=== PATIENT | female | born 1945 | race Caucasian/White ===

== ENCOUNTER 2019-07-25 18:28 | Inpatient (IN) | payer MEDICARE, OTHER ==
[~2019-07-25] VITALS: Ht 165.1 cm; Wt 93.5 kg
[2019-07-25 19:22] LABS: HEMATOCRIT 41.5 % (37.0-47.0); HEMOGLOBIN 14.1 g/dl (12.5-16.0); MEAN CELL VOLUME 93 fl (80.0-100.0); MEAN CORPUSCULAR HEMOGLOBIN 32 pg (27.0-31.0); MEAN CORPUSCULAR HGB CONC 34 g/dl (33.0-37.0); MEAN PLATELET VOLUME 9.8 fl (7.4-10.4); PLATELET COUNT 107 K/mm3 (130-400); RED BLOOD COUNT 4.48 M/mm3 (4.10-5.30); REDCELL DISTRIBUTION WIDTH-CV 13.4 % (11.5-14.5)
[2019-07-25 19:29] LABS: INR 1.1 (0.8-3.0); PROTHROMBIN TIME 12.8 SECONDS (9.7-12.8)
[2019-07-25 19:48] LABS: ALBUMIN 3.4 gm/dL (3.5-5.0); BILIRUBIN,TOTAL 0.9 mg/dL (0.0-1.0); C-REACTIVE PROTEIN 5.2 mg/dL (0.0-0.9); CALCIUM 8.7 mg/dL (8.4-10.2); CREATININE, serum 0.76 (0.52-1.25); POTASSIUM 3.6 mmol/L (3.4-5.0); TOTAL PROTEIN 6.2 gm/dL (6.4-8.2)
[2019-07-25 19:57] LABS: TROPONIN-I 0.021 ng/mL (0.000-0.035)
[2019-07-25 20:13] LABS: BAND 2 % (0-10); LYMPHOCYTE 4 % (20.0-51.0); MYELOCYTE 4 % (0-0); NEUTROPHILS 73 % (42.0-75.2)
[2019-07-25 20:14] LABS: PLATELET ESTIMATE DECREASED (NORMAL)
[2019-07-25] MEDS ORDERED: PROAIR RES117 MCG/Ac IH (22:10)
[2019-07-25] MEDS ORDERED: ALBUTEROL0.83 MG/ML IH (22:10)
[2019-07-25] MEDS ORDERED: RT SPIRIVA18 MCG IH (22:11)
[2019-07-25] MEDS ORDERED: 00186-0370-20 IH (22:12)
[2019-07-25 22:14] VITALS: BP 126/62; PULSE 70; TEMP 97.8
[2019-07-25] MEDS ORDERED: NASACORT OTC NS (22:14)
[2019-07-25] MEDS ORDERED: CRESTOR 10MG10 MG PO (22:15)
--- NOTE | 2019-07-25 22:15 | NUR ---
Admitted to medical floor from ER- DX COPD exacerbation, lung sounds decreased, wheezy, coarse- o2 at 3L/nc with sats 92-93%- tele on,- Yasmine SHARMA here to see patient and write orders-
[2019-07-25] MEDS ORDERED: K-DUR 10 MEQ T10 MEQ PO (22:16)
[2019-07-25] MEDS ORDERED: LOPRESSOR 225 MG/TAB PO (22:17)
[2019-07-25] MEDS ORDERED: NORCO 325 MG-101 TAB PO (22:18)
[2019-07-25] MEDS ORDERED: LASIX 20MG TABL20 MG PO (22:19)
[2019-07-25] MEDS ORDERED: NEXIUM 40MG40 MG PO (22:20)
[2019-07-25] MEDS ORDERED: ASPIRIN E.C. 8181 MG PO (22:21)
[2019-07-25] MEDS ORDERED: SYNTHROID0.075 MG/T PO (22:22)
--- NOTE | 2019-07-25 23:14 | NUR ---
called ANU Benjamin about pt HR in 140's.
[2019-07-25 23:51] VITALS: BP 116/57; PULSE 70; TEMP 97.7
[2019-07-26 04:10] VITALS: BP 115/57; TEMP 97.4
--- NOTE | 2019-07-26 05:47 | NUR ---
Quiet night-- VSS, o2 sats 94-95% on 3L/nc--states overall feeling a little better -
[2019-07-26 06:46] LABS: HEMATOCRIT 39.9 % (37.0-47.0); HEMOGLOBIN 13.6 g/dl (12.5-16.0); MEAN CELL VOLUME 93 fl (80.0-100.0); MEAN CORPUSCULAR HEMOGLOBIN 32 pg (27.0-31.0); MEAN CORPUSCULAR HGB CONC 34 g/dl (33.0-37.0); MEAN PLATELET VOLUME 10.2 fl (7.4-10.4); PLATELET COUNT 100 K/mm3 (130-400); REDCELL DISTRIBUTION WIDTH-CV 13.5 % (11.5-14.5)
[2019-07-26 07:08] LABS: CALCIUM 8.6 mg/dL (8.4-10.2); CREATININE, serum 0.67 (0.52-1.25); POTASSIUM 4.3 mmol/L (3.4-5.0)
[2019-07-26 07:25] VITALS: BP 135/69; PULSE 70; TEMP 97.6
--- NOTE | 2019-07-26 08:45 | NUR ---
Pt assessment completed and charted. Morning medications administered per OCT. Pt A&O, sitting in bed. VSS. Pt denies chest pain, dizziness, n/v/d. Pt states she has some SOB, currently on 3L NC, satting well. Lung sounds wheezing throughout insp/exp. Heart RRR, pulses strong bilaterally. RWR INT IV flushes w/o complications. Pt on tele. Currently receving breathing tx. No other concerns expressed at this time.
--- NOTE | 2019-07-26 10:23 | NUR ---
Patient [place] near [place], [place] and recently relocated to the [place] area from in April 2019. Patient's son Eric Camejo can be contacted at [phone] and her son Noel Camejo can be contacted at [phone]. Patient has anticipated usage of durable medical equipment and has no primary care physician at this time. Patient uses [facility] in [place], and does not have advance directives completed or on file at this time. No further needs and social work administrator will follow as needed.
[2019-07-26 11:14] LABS: BAND 4 % (0-10); LYMPHOCYTE 10 % (20.0-51.0); NEUTROPHILS 86 % (42.0-75.2); PLATELET ESTIMATE DECREASED (NORMAL)
[2019-07-26 11:41] VITALS: BP 119/53; PULSE 70; TEMP 97.9
[2019-07-26 16:11] VITALS: BP 145/58; PULSE 70; TEMP 97.6
[2019-07-26 19:52] VITALS: BP 140/73; PULSE 70; TEMP 97.5
[2019-07-27] VITALS (7 sets, daily range): BP systolic 122–149; BP diastolic 51–76; PULSE 7–70; TEMP 97.6–98.5
--- NOTE | 2019-07-27 01:48 | NUR ---
Report rcvd from ANU Celeste. Pt is sitting up in bed, no c/o pain or discomfort at this time. Assessment completed. Pt voiced no need for anything at this time. Call light and personal belongings within reach. No further concerns at this time.
--- NOTE | 2019-07-27 04:45 | NUR ---
Antionette from Telemetry called to inform of an 8 beat run of Ventricular tachycardia. RT called and an EKG was completed. No change from previous EKG.
--- NOTE | 2019-07-27 05:24 | NUR ---
Pt has had a rough night. Lung sounds have increased from Expiratory Wheezes to inspiratory and expiratory wheezing. Pt has had breathing treatments as well as an EKG. Pt did not however, have a difficult time sleeping.
[2019-07-27 06:44] LABS: HEMATOCRIT 40.5 % (37.0-47.0); MEAN CELL VOLUME 93 fl (80.0-100.0); MEAN CORPUSCULAR HEMOGLOBIN 32 pg (27.0-31.0); MEAN CORPUSCULAR HGB CONC 35 g/dl (33.0-37.0); PLATELET COUNT 113 K/mm3 (130-400); RED BLOOD COUNT 4.38 M/mm3 (4.10-5.30); REDCELL DISTRIBUTION WIDTH-CV 13.3 % (11.5-14.5)
[2019-07-27 06:56] LABS: CALCIUM 9.2 mg/dL (8.4-10.2); CREATININE, serum 0.74 (0.52-1.25); POTASSIUM 4.2 mmol/L (3.4-5.0)
--- NOTE | 2019-07-27 07:28 | NUR ---
Report given to ANU Neri. Pt lung sounds worsening throughout the night. Ins/Exp wheezes and increased SOB. Pt has had breathing treatments and solumedrol. No other concerns at this time.
[2019-07-27 08:26] LABS: BAND 3 % (0-10); LYMPHOCYTE 4 % (20.0-51.0); NEUTROPHILS 88 % (42.0-75.2)
[2019-07-27 08:28] LABS: PLATELET ESTIMATE NORMAL (NORMAL)
--- NOTE | 2019-07-27 10:02 | NUR ---
Pt awake and alert thios morning, sitting up in the recliner upon entry, talkative, shift assessments complete, left Pt call light in reach.
--- NOTE | 2019-07-27 18:29 | NUR ---
Pt rested during the day, she spent some time up in the recliner earlier today, no C/O pain throughout the day, Pt has audible wheezing at times, VS have remained stable.
--- NOTE | 2019-07-27 19:06 | NUR ---
Report received from ANU Neri
--- NOTE | 2019-07-27 19:37 | NUR ---
Resting in bed. Assessment complete. Lungs wheezing throughout. Labored breathing with ambulation and coughing. Currently on 2 liters of oxygen via nasal cannula. Heart sounds normal. Bowels active x4. Pulses strong throughout. Bilateral lower leg edema +1. INT right forearm without complications. Denies pain. Denies other needs at this time. Call light in reach.
--- NOTE | 2019-07-28 02:45 | NUR ---
Resting in bed. Call light in reach.
--- NOTE | 2019-07-28 03:53 | NUR ---
Resting in bed. Call light in reach.
[2019-07-28 04:21] VITALS: BP 141/81; PULSE 70; TEMP 98.2
--- NOTE | 2019-07-28 06:19 | NUR ---
Patient had uneventful night. Resting in bed this AM. Denied needs. Call light in reach.
--- NOTE | 2019-07-28 07:14 | NUR ---
Report given to ANU Roth
[2019-07-28 07:30] LABS: CALCIUM 9.4 mg/dL (8.4-10.2); CREATININE, serum 0.76 (0.52-1.25); POTASSIUM 3.9 mmol/L (3.4-5.0)
[2019-07-28 07:48] LABS: HEMATOCRIT 41.9 % (37.0-47.0); MEAN CELL VOLUME 94 fl (80.0-100.0); MEAN CORPUSCULAR HEMOGLOBIN 31 pg (27.0-31.0); MEAN CORPUSCULAR HGB CONC 33 g/dl (33.0-37.0); MEAN PLATELET VOLUME 10.2 fl (7.4-10.4); PLATELET COUNT 136 K/mm3 (130-400); RED BLOOD COUNT 4.46 M/mm3 (4.10-5.30); REDCELL DISTRIBUTION WIDTH-CV 13.7 % (11.5-14.5)
--- NOTE | 2019-07-28 08:30 | NUR ---
Patient is sitting up in recliner doing a word search puzzle. She expresses that she wishes to go home today. Denies pain but knows that she has been wheezing. She does have insp and expriatroy wheezes. She is alert and oriented, independent in room. Denies pain. Call light and personal items are within reach.
[2019-07-28 08:56] LABS: BAND 11 % (0-10); LYMPHOCYTE 3 % (20.0-51.0); NEUTROPHILS 83 % (42.0-75.2); PLATELET ESTIMATE NORMAL (NORMAL)
[2019-07-28 09:00] VITALS: BP 126/62; PULSE 70; TEMP 97.1
--- NOTE | 2019-07-28 10:09 | NUR ---
patient needs 2lpm while ambulating for Spo2 >88. 2 LPM GIVES PATIENT 90%.
[2019-07-28] MEDS ORDERED: PREDNISONE20 MG PO (11:58)
[2019-07-28 12:11] VITALS: BP 110/40; PULSE 76; TEMP 97.9
--- NOTE | 2019-07-28 13:49 | NUR ---
The patient is to discharge back home with her son today, 07/28. MARCELINO met with the patient to review discharge plan. The patient reports that she already has continuous home oxygen set up through [facility] and has a portable tank here to go home on. The patient was secured an appointment on 08/[address] Merlyn White at the [facility] for primary care. The patient had no other questions or concerns for SW. MARCELINO presented and explained the IM form to the patient. The patient verbalized understanding, signed, and she was provided a copy. No additional needs at this time.
--- NOTE | 2019-07-28 14:10 | NUR ---
Pt alert and oriented. Pt given discharge orders and education on discharge medications and follow up appts. Pt IV discontinued in RW. No infiltration or redness noted. Pt will lemon picker meds at [facility]. Pt assisted with belongings and is getting dressed now. Pt's spouse will be here soon to pick her up. Pt to use call light when ride is here.
--- NOTE | 2019-07-28 18:01 | NUR ---
Patient discharged at 1445, was escorted to private vehicle via wheelchair. Personal belongings taken with patient.
== END 2019-07-28 14:45 | disposition home or self-care (01) | DRG 192 ==
LOC: COL.ER 18:28 → MEDICAL 20:21
PROVIDERS: Emergency Medicine; Nurse Practitioner Family; Physician Assistant; ADMIT Internal Medicine
DX: J44.1 Chronic obstructive pulmonary disease with (acute) exacerbation (principal); E03.9 Hypothyroidism, unspecified; E78.5 Hyperlipidemia, unspecified; I11.0 Hypertensive heart disease with heart failure; I50.9 Heart failure, unspecified; I48.91 Unspecified atrial fibrillation; G47.33 Obstructive sleep apnea (adult) (pediatric); I25.10 Atherosclerotic heart disease of native coronary artery without angina pectoris; B97.4 Respiratory syncytial virus as the cause of diseases classified elsewhere; Z79.82 Long term (current) use of aspirin; Z95.1 Presence of aortocoronary bypass graft; Z87.891 Personal history of nicotine dependence; Z99.81 Dependence on supplemental oxygen; Z79.891 Long term (current) use of opiate analgesic; Z88.0 Allergy status to penicillin
CPT/HCPCS: 99222-AI; 99232-AI; 99239; A4216; J0696; J1650; J2920; J2930; J7512

== ENCOUNTER → 2019-09-02 | Outpatient (CLI) | payer MEDICARE, OTHER ==
[~2019-09-02] MED LIST: 00186-0370-20 IH; ALBUTEROL0.83 MG/ML IH; ASPIRIN E.C. 8181 MG PO; CRESTOR 10MG10 MG PO; K-DUR 10 MEQ T10 MEQ PO; LASIX 20MG TABL20 MG PO; LOPRESSOR 225 MG/TAB PO; NASACORT OTC NS; NEXIUM 40MG40 MG PO; NORCO 325 MG-101 TAB PO; PREDNISONE20 MG PO; PROAIR RES117 MCG/Ac IH; RT SPIRIVA18 MCG IH; SYNTHROID0.075 MG/T PO
== END ==
LOC: ZCOL.LAB 16:21
DX: E03.9 Hypothyroidism, unspecified (principal)

== ENCOUNTER → 2020-07-05 | Outpatient (CLI) | payer MEDICARE, OTHER | LOC: MC.RAD 10:57 | DX: Z12.31 Encounter for screening mammogram for malignant neoplasm of breast (principal) ==

== ENCOUNTER → 2021-07-31 | Outpatient (CLI) | payer MEDICARE | LOC: COL.RAD 11:27 | DX: K43.9 Ventral hernia without obstruction or gangrene (principal) ==

== ENCOUNTER → 2021-09-21 | Outpatient (CLI) | payer MEDICARE | LOC: MC.RAD 07-18 13:15 | DX: Z12.31 Encounter for screening mammogram for malignant neoplasm of breast (principal) ==

== ENCOUNTER 2021-11-03 10:39 | Emergency (ER) | payer MEDICARE ==
[~2021-11-03] VITALS: Ht 167.6 cm; Wt 101.8 kg
[2021-11-03 10:50] VITALS: TEMP 98.2
[2021-11-03 12:09] LABS: HEMATOCRIT 39.5 % (37.0-47.0); HEMOGLOBIN 13.1 g/dl (12.5-16.0); MEAN CELL VOLUME 90 fl (80.0-100.0); MEAN CORPUSCULAR HEMOGLOBIN 30 pg (27-31); MEAN CORPUSCULAR HGB CONC 33 g/dl (33.0-37.0); MEAN PLATELET VOLUME 10.2 fl (7.4-10.4); PLATELET COUNT 108 K/mm3 (130-400); RED BLOOD COUNT 4.37 M/mm3 (4.10-5.30); REDCELL DISTRIBUTION WIDTH-CV 14.2 % (11.5-14.5)
[2021-11-03 12:25] LABS: ALBUMIN 4.1 gm/dL (3.4-4.8); BILIRUBIN,TOTAL 0.7 mg/dL (0.2-1.2); CALCIUM 9.5 mg/dL (8.4-10.2); CREATININE, serum 0.96 mg/dL (0.57-1.11); TOTAL PROTEIN 6.9 gm/dL (6.2-8.1)
[2021-11-03 12:29] LABS: BAND 1 % (0-10); LYMPHOCYTE 19 % (20.0-51.0); NEUTROPHILS 68 % (42.0-75.2); PLATELET ESTIMATE DECREASED (NORMAL)
[2021-11-03 12:30] LABS: TROPONIN-I 0.025 ng/mL (0.00-0.033)
[2021-11-03] MEDS ORDERED: NORCO 325 MG-51 TAB PO (13:12)
[2021-11-03 13:30] VITALS: BP 138/74; PULSE 70
== END 2021-11-03 13:30 | disposition home or self-care (01) ==
LOC: COL.ER 10:39
PROVIDERS: Emergency Medicine
DX: M54.6 Pain in thoracic spine (principal); J44.9 Chronic obstructive pulmonary disease, unspecified; Z99.81 Dependence on supplemental oxygen

== ENCOUNTER → 2022-10-18 | Outpatient (CLI) | payer MEDICARE ==
[~2022-10-18] MED LIST changes: +NORCO 325 MG-51 TAB PO
== END ==
LOC: COL.VAS 13:42
DX: I42.9 Cardiomyopathy, unspecified (principal); I35.1 Nonrheumatic aortic (valve) insufficiency; I51.7 Cardiomegaly; Z95.3 Presence of xenogenic heart valve

== ENCOUNTER 2024-04-02 07:46 | Emergency (ER) | payer MEDICARE ==
[~2024-04-02] VITALS: Ht 167.6 cm; Wt 92.3 kg
[~2024-04-02 07:46] MED LIST changes: +PEPCID40 MG PO
[2024-04-02 08:11] VITALS: TEMP 98
[2024-04-02 08:58] LABS: BASO % 0.2 % (0.0-2.0); EOS % 0.3 % (0.0-4.0); GRAN # 4.8 K/mm3 (1.4-6.5); GRAN % 72.7 % (42.2-75.2); LYMPH # 0.6 K/mm3 (1.2-3.4); LYMPH % 9.4 % (20.0-51.0); MEAN CELL VOLUME 84 fl (80.0-100.0); MEAN CORPUSCULAR HEMOGLOBIN 28 pg (27-31); MEAN CORPUSCULAR HGB CONC 33 g/dl (33.0-37.0); MONO # 1.1 K/mm3 (0.1-0.6); MONO % 16.9 % (1.7-9.3); PLATELET COUNT 123 K/mm3 (130-400); RED BLOOD COUNT 4.35 M/mm3 (4.10-5.30); REDCELL DISTRIBUTION WIDTH-CV 14.9 % (11.5-14.5)
[2024-04-02] MEDS ORDERED: Ondansetron 4 MG/2 ML VIAL IV ONE (09:00)
[2024-04-02] MEDS ORDERED: Morphine 4 MG/ML VIAL IV ONE (09:00)
[2024-04-02 09:04] LABS: HEMATOCRIT 36.5 % (37.0-47.0)
[2024-04-02 09:12] LABS: INR 1.3 (0.8-3.0); PROTHROMBIN TIME 14.5 SECONDS (9.7-12.8)
[2024-04-02 09:28] LABS: ALBUMIN 3.7 g/dL (3.4-4.8); BILIRUBIN,TOTAL 0.8 mg/dL (0.2-1.2); CALCIUM 9.4 mg/dL (8.4-10.2); CREATININE, serum 0.84 mg/dL (0.57-1.11); POTASSIUM 4.4 mEq/L (3.5-4.5); TOTAL PROTEIN 6.7 g/dl (6.2-8.1)
[2024-04-02 13:01] VITALS: BP 132/61; PULSE 69
== END 2024-04-02 13:08 | disposition short-term general hospital (02) ==
LOC: COL.ER 07:46
PROVIDERS: Personal Emergency Response Attendant
DX: K92.1 Melena (principal)
CPT/HCPCS: J2270; J2405